=== PATIENT | female | born 1990 | race Caucasian/White ===

== ENCOUNTER 2017-01-15 18:24 | Emergency (ER) | payer MEDICAID ==
[~2017-01-15] VITALS: Ht 162.6 cm; Wt 65.7 kg
[2017-01-15] MEDS ORDERED: ONDA4TAB7 PO (19:01)
[2017-01-15] MEDS ORDERED: PNV11TAB5 PO (19:02)
[2017-01-15 20:54] VITALS: BP 119/74
== END 2017-01-15 20:55 | disposition home or self-care (01) ==
LOC: ED 19:12
DX: O26.891 Other specified pregnancy related conditions, first trimester (principal); Z3A.08 8 weeks gestation of pregnancy; K62.5 Hemorrhage of anus and rectum; K59.00 Constipation, unspecified
CPT/HCPCS: 36415; 46600; 81003; 85025

== ENCOUNTER 2017-07-24 15:16 | Outpatient (CLI) | payer OTHER, MEDICAID ==
[~2017-07-24] VITALS: Ht 162.6 cm; Wt 87.7 kg
[~2017-07-24 15:16] MED LIST: ONDA4TAB7 PO; PNV11TAB5 PO
[2017-07-24 16:20] VITALS: BP 114/68
[2017-07-24 19:22] LABS: ASPARTATE AMINO TRANSFERASE 158 U/L (15-37); BLOOD UREA NITROGEN 3 mg/dL (7-18)
== END 2017-07-24 19:50 | disposition home or self-care (01) ==
LOC: LDOP 15:16
PROVIDERS: ATTEND Obstetrics & Gynecology
DX: O36.8130 Decreased fetal movements, third trimester, not applicable or unspecified (principal); Z3A.36 36 weeks gestation of pregnancy
CPT/HCPCS: 36415; 59025; 80053; 99211; G0463

== ENCOUNTER 2017-08-02 10:26 | Outpatient (CLI) | payer OTHER, MEDICAID ==
[2017-08-02 11:11] VITALS: BP 124/80
== END 2017-08-02 12:30 | disposition home or self-care (01) ==
LOC: LDOP 10:26
PROVIDERS: ATTEND Student in an Organized Health Care Education/Training Program
DX: Z36.9 Encounter for antenatal screening, unspecified (principal)
CPT/HCPCS: 59025; 76815; 89060; 99211; G0463; Q0114

== ENCOUNTER 2017-08-07 17:14 | Inpatient (IN) | payer OTHER, MEDICAID ==
[~2017-08-07] VITALS: Ht 162.6 cm; Wt 88.0 kg
[2017-08-07] MEDS ORDERED: OXYTOCIN 30U/ 0.9% NaCL 500ML 500 ML IV PRN ×2 (20:18)
[2017-08-07] MEDS ORDERED: D5%-LACTATED RINGERS 1,000 ML IV SCH (20:18)
[2017-08-07] MEDS ORDERED: OXYTOCIN 30U/ 0.9% NaCL 500ML 500 ML IV ONE (20:18)
[2017-08-07] MEDS ORDERED: NEWBORN KIT ONE (20:23)
[2017-08-07] MEDS ORDERED: OXYTOCIN 30U/ 0.9% NaCL 500ML 500 ML ONE (20:23)
[2017-08-07] MEDS ORDERED: FENTANYL PF 100 MCG/2ML IV PRN (20:30)
[2017-08-07] MEDS ORDERED: TERBUTALINE 1 MG/ML, 1ML IVPush PRN (20:30)
[2017-08-07] MEDS ORDERED: CALCIUM CARBONATE 500 MG TAB.CHEW PO PRN (20:30)
[2017-08-07] MEDS ORDERED: ONDANSETRON 2MG/ML, 2ML IVPush PRN (20:30)
[2017-08-07] MEDS ORDERED: MISOPROSTOL 25 MCG TABLET ONE (20:36)
[2017-08-07] MEDS: MISOPROSTOL 25 MCG TABLET VG PRN (20:40)
[2017-08-07 20:54] LABS: BASOPHILS # (AUTO) 0.02 x10^3/uL (0-0.1); BASOPHILS % (AUTO) 0 % (0-1); EOSINOPHILS # (AUTO) 0.18 x10^3/uL (0-0.4); EOSINOPHILS % (AUTO) 2 % (1-7); LYMPHOCYTES # (AUTO) 2.98 x10^3/uL (1-3.4); LYMPHOCYTES % (AUTO) 24 % (22-44); MD NO; MEAN CORPUSCULAR HEMOGLOBIN 29.4 pg (27.0-34.8); MEAN CORPUSCULAR HGB CONC 33.4 g/dL (32.4-35.8); MEAN CORPUSCULAR VOLUME 88.1 fL (80-100); MEAN PLATELET VOLUME 8.7 fL (7.4-10.4); MONOCYTES # (AUTO) 1.07 x10^3/uL (0.2-0.8); MONOCYTES % (AUTO) 9 % (2-9); NEUTROPHILS # (AUTO) 8.01 x10^3/uL (1.8-6.8); NEUTROPHILS % (AUTO) 65 % (42-75); PLATELET COUNT 280 x10^3/uL (130-400); RED BLOOD COUNT 4.42 x10^6/uL (3.82-5.3); RED CELL DISTRIBUTION WIDTH 12.5 % (9.6-15.2)
[2017-08-08] MEDS ORDERED: DIPHENHYDRAMINE 25 MG CAPSULE ONE (00:04)
[2017-08-08] MEDS ORDERED: MISOPROSTOL 25 MCG TABLET ONE ×2 (00:04→04:30)
[2017-08-08] MEDS: MISOPROSTOL 25 MCG TABLET VG PRN (00:40)
[2017-08-08] MEDS ORDERED: DIPHENHYDRAMINE 25 MG CAPSULE PO PRN (03:30)
[2017-08-08 09:32] LABS: MICROSCOPIC NOT IND
[2017-08-08 09:35] LABS: CULTURE INDICATED? NO
[2017-08-08 09:50] LABS: AMPHETAMINE SCREEN, URINE Negative (Negative); BARBITURATE SCREEN, URINE Negative (Negative); BENZODIAZEPINE SCREEN, URINE Negative (Negative); CANNABINOID SCREEN, URINE Negative (Negative); COCAINE SCREEN, URINE Negative (Negative); METHADONE SCREEN, URINE Negative (Negative); OPIATE SCREEN, URINE Negative (Negative)
[2017-08-08 11:10] LABS: ALANINE AMINOTRANSFERASE 176 U/L (12-78); ALBUMIN 2.7 g/dL (3.4-5.0); ANION GAP 6 mmol/L (5-15); CALCIUM 8.2 mg/dL (8.5-10.1); CHLORIDE 107 mmol/L (98-107); CREATININE 0.47 mg/dL (0.55-1.02)
[2017-08-08 11:12] LABS: ALKALINE PHOSPHATASE 230 U/L (45-117); BILIRUBIN,TOTAL 0.4 mg/dL (0.2-1.0); TOTAL PROTEIN 7.2 g/dL (6.4-8.2)
[2017-08-08] MEDS ORDERED: FENTANYL PF 100 MCG/2ML ONE ×3 (14:12→19:35)
[2017-08-08] MEDS: FENTANYL PF 100 MCG/2ML IVPush PRN ×3 (14:17→19:39)
[2017-08-08] MEDS: LACTATED RINGERS 1,000 ML IV SCH ×2 (14:23→22:49)
[2017-08-08] MEDS ORDERED: LIDOCAINE 1%, 10ML ONE (19:10)
[2017-08-08] MEDS ORDERED: MISOPROSTOL 200 MCG TABLET ONE (19:10)
[2017-08-08 20:13] VITALS: BP 132/77
[2017-08-08] MEDS ORDERED: LACTATED RINGERS 1,000 ML IV SCH (21:48)
[2017-08-08] MEDS ORDERED: FENTANYL/BUPIV./NS/PF 250 ML EPIDCONT SCH (21:48)
[2017-08-08] MEDS ORDERED: BUPIVACAINE/PF 0.25% ONE (21:53)
[2017-08-08] MEDS ORDERED: FENTANYL/BUPIV./NS/PF 250 ML EPIDCONT ONE (21:54)
[2017-08-08] MEDS ORDERED: NALOXONE 0.4 MG/ML, 1ML IVPush PRN (22:00)
[2017-08-08] MEDS ORDERED: LACTATED RINGERS 1,000 ML IVBOLUS PRN (22:00)
[2017-08-08] MEDS ORDERED: EPHEDRINE 50 MG/ML, 1ML IVPush PRN (22:00)
[2017-08-09] MEDS ORDERED: FENTANYL PF 100 MCG/2ML ONE (04:17)
[2017-08-09] MEDS: FENTANYL PF 100 MCG/2ML IVPush PRN (04:21)
[2017-08-09 07:15] VITALS: BP 127/71
[2017-08-09] MEDS ORDERED: MISOPROSTOL 200 MCG TABLET PR PRN (11:30)
[2017-08-09] MEDS ORDERED: IBUPROFEN 600 MG TABLET PO PRN (11:30)
[2017-08-09] MEDS ORDERED: ONDANSETRON 2MG/ML, 2ML IV PRN (11:30)
[2017-08-09] MEDS: OXYTOCIN 30U/ 0.9% NaCL 500ML 500 ML IV SCH ×2 (12:05→21:30)
[2017-08-09] MEDS ORDERED: OXYcodone/APAP 5/325MG TABLET ONE (13:54)
[2017-08-09] MEDS: OXYcodone/APAP 5/325MG TABLET PO PRN ×2 (13:57→20:10)
[2017-08-09 16:45] VITALS: BP 134/82
[2017-08-09 19:40] VITALS: BP 123/84
[2017-08-09 19:56] LABS: BASOPHILS # (AUTO) 0.03 x10^3/uL (0-0.1); BASOPHILS % (AUTO) 0 % (0-1); EOSINOPHILS # (AUTO) 0.07 x10^3/uL (0-0.4); EOSINOPHILS % (AUTO) 0 % (1-7); LYMPHOCYTES # (AUTO) 2.68 x10^3/uL (1-3.4); LYMPHOCYTES % (AUTO) 14 % (22-44); MD SCAN; MEAN CORPUSCULAR HEMOGLOBIN 29.4 pg (27.0-34.8); MEAN CORPUSCULAR HGB CONC 33.2 g/dL (32.4-35.8); MEAN CORPUSCULAR VOLUME 88.6 fL (80-100); MEAN PLATELET VOLUME 8.6 fL (7.4-10.4); MONOCYTES # (AUTO) 1.33 x10^3/uL (0.2-0.8); MONOCYTES % (AUTO) 7 % (2-9); NEUTROPHILS # (AUTO) 14.49 x10^3/uL (1.8-6.8); NEUTROPHILS % (AUTO) 78 % (42-75); PLATELET COUNT 267 x10^3/uL (130-400); RED BLOOD COUNT 4.37 x10^6/uL (3.82-5.3); RED CELL DISTRIBUTION WIDTH 12.6 % (9.6-15.2)
[2017-08-09] MEDS: DOCUSATE 100 MG CAPSULE PO PRN (20:11)
[2017-08-10 00:15] VITALS: BP 125/84
[2017-08-10] MEDS: OXYcodone/APAP 5/325MG TABLET PO PRN ×5 (00:21→21:29)
[2017-08-10 04:20] VITALS: BP 110/71
[2017-08-10] MEDS: OXYTOCIN 30U/ 0.9% NaCL 500ML 500 ML IV SCH ×2 (07:30→20:55)
[2017-08-10] MEDS: PRENATAL VIT/IRON/FA 1 EACH TABLET PO SCH (08:36)
[2017-08-10] MEDS: DOCUSATE 100 MG CAPSULE PO PRN ×2 (08:36→21:29)
[2017-08-10 08:40] VITALS: BP 117/82
[2017-08-10 18:00] VITALS: BP 126/85
[2017-08-10 20:30] VITALS: BP 112/69
[2017-08-11] MEDS: OXYcodone/APAP 5/325MG TABLET PO PRN ×2 (01:53→08:53)
[2017-08-11] MEDS: OXYTOCIN 30U/ 0.9% NaCL 500ML 500 ML IV SCH (03:30)
[2017-08-11 07:15] VITALS: BP 118/79
[2017-08-11] MEDS: DOCUSATE 100 MG CAPSULE PO PRN (08:53)
[2017-08-11] MEDS: PRENATAL VIT/IRON/FA 1 EACH TABLET PO SCH (08:53)
[2017-08-11] MEDS ORDERED: OXYC-302 PO (09:33)
== END 2017-08-11 13:10 | disposition home or self-care (01) | DRG 774 ==
LOC: LDIP 20:14 → 2NW 08-09 12:26 → LDIP 08-09 12:44 → 2NW 08-09 17:08
PROVIDERS: ADMIT Student in an Organized Health Care Education/Training Program; ATTEND Student in an Organized Health Care Education/Training Program
PROC: 10E0XZZ Delivery of Products of Conception, External Approach (ICD-10-PCS; principal; 2017-08-09)
PROC: 3E0P3VZ Introduction of Hormone into Female Reproductive, Percutaneous Approach (ICD-10-PCS; 2017-08-09)
DX: O69.81X0 Labor and delivery complicated by cord around neck, without compression, not applicable or unspecified (principal); O98.42 Viral hepatitis complicating childbirth; Z37.0 Single live birth; Z3A.38 38 weeks gestation of pregnancy; B19.20 Unspecified viral hepatitis C without hepatic coma
CPT/HCPCS: 36415; 80053; 80307; 81003; 85025; 86850; 86900; J3010; J3490; G0479; J2590; J7120; J7121; Q0163

== ENCOUNTER 2017-09-25 18:22 | Inpatient (IN) | payer OTHER, MEDICAID ==
[~2017-09-25] VITALS: Ht 162.6 cm; Wt 74.8 kg
[~2017-09-25 18:22] MED LIST changes: +OXYC-302 PO
[2017-09-25] MEDS ORDERED: SODIUM CHLORIDE 0.9% 1,000ML IVBOLUS ONE ×2 (19:00→22:00)
[2017-09-25] MEDS ORDERED: FAMOTIDINE 20 MG/2 ML IVP ONE (19:00)
[2017-09-25] MEDS ORDERED: ONDANSETRON 2MG/ML, 2ML IVPush ONE (19:00)
[2017-09-25] MEDS ORDERED: SODIUM CHLORIDE FLUSH 10ML SYR IVF ONE (19:00)
[2017-09-25] MEDS ORDERED: PROMETHAZINE 25 MG/ML, 1ML IM ONE (19:30)
[2017-09-25] MEDS ORDERED: PROMETHAZINE 25 MG/ML, 1ML ONE ×2 (19:44→19:51)
[2017-09-25] MEDS ORDERED: FAMOTIDINE 20 MG/2 ML ONE ×2 (19:45→19:52)
[2017-09-25] MEDS ORDERED: ONDANSETRON 2MG/ML, 2ML ONE ×4 (19:45→23:13)
[2017-09-25] MEDS ORDERED: MORPHINE SULFATE 4 MG/ML, 1ML ONE ×3 (19:45→22:12)
[2017-09-25] MEDS: MORPHINE SULFATE 4 MG/ML, 1ML IVPush PRN ×2 (20:05→22:17)
[2017-09-25 20:09] LABS: BASOPHILS # (AUTO) 0.04 x10^3/uL (0-0.1); BASOPHILS % (AUTO) 0 % (0-1); EOSINOPHILS # (AUTO) 0.05 x10^3/uL (0-0.4); EOSINOPHILS % (AUTO) 0 % (1-7); LYMPHOCYTES % (AUTO) 15 % (22-44); MD NO; MEAN CORPUSCULAR HEMOGLOBIN 28.9 pg (27.0-34.8); MEAN CORPUSCULAR HGB CONC 33.5 g/dL (32.4-35.8); MEAN CORPUSCULAR VOLUME 86.3 fL (80-100); MEAN PLATELET VOLUME 8.1 fL (7.4-10.4); MONOCYTES # (AUTO) 0.53 x10^3/uL (0.2-0.8); MONOCYTES % (AUTO) 4 % (2-9); NEUTROPHILS # (AUTO) 10.15 x10^3/uL (1.8-6.8); NEUTROPHILS % (AUTO) 80 % (42-75); PLATELET COUNT 300 x10^3/uL (130-400); RED BLOOD COUNT 5.41 x10^6/uL (3.82-5.3); RED CELL DISTRIBUTION WIDTH 13.5 % (9.6-15.2)
[2017-09-25 20:18] LABS: INTERNATIONAL NORMALIZED RATIO 1.03 (0.93-1.1); PROTHROMBIN TIME 10.6 Seconds (9.6-11.5)
[2017-09-25 20:23] LABS: ALANINE AMINOTRANSFERASE 130 U/L (12-78); ALBUMIN 4.5 g/dL (3.4-5.0); ANION GAP 9 mmol/L (5-15); CALCIUM 9.3 mg/dL (8.5-10.1); CHLORIDE 105 mmol/L (98-107); CREATININE 0.83 mg/dL (0.55-1.02)
[2017-09-25 20:27] LABS: ALKALINE PHOSPHATASE 110 U/L (45-117); BILIRUBIN,TOTAL 0.7 mg/dL (0.2-1.0); TOTAL PROTEIN 8.3 g/dL (6.4-8.2)
[2017-09-25 21:32] LABS: MICROSCOPIC NOT IND
[2017-09-25 21:34] LABS: HCG UR SG 1.006 (1.003-1.030)
[2017-09-25] MEDS ORDERED: OMNIPAQUE 350 MG/ML, 150 ML BOTTLE ONE (21:34)
[2017-09-25 21:35] LABS: CULTURE INDICATED? NO
[2017-09-25] MEDS ORDERED: CEFOTETAN PMX 1GM/50ML 50 ML IV ONE (22:00)
[2017-09-25] MEDS ORDERED: CEFOTETAN PMX 1GM/50ML 50 ML ONE (22:11)
[2017-09-25] MEDS ORDERED: EPINEPHRINE 1 MG/ML, 1ML ONE (22:31)
[2017-09-25] MEDS ORDERED: BUPIVACAINE/PF 0.5% ONE (22:31)
[2017-09-25] MEDS ORDERED: FENTANYL PF 250 MCG/5ML ONE (22:40)
[2017-09-25] MEDS ORDERED: MIDAZOLAM 1 MG/ML, 2ML ONE (22:56)
[2017-09-25] MEDS ORDERED: SUCCINYLCHOLINE 20 MG/ML, 10ML ONE (23:00)
[2017-09-25] MEDS ORDERED: hydrALAzine 20 MG/ML, 1ML IV PRN (23:00)
[2017-09-25] MEDS ORDERED: ACETAMINOPHEN 325 MG TABLET PO PRN (23:00)
[2017-09-25] MEDS ORDERED: OXYcodone 5 MG/5 ML ORAL.SOL UDC PO PRN (23:00)
[2017-09-25] MEDS ORDERED: LABETALOL 5MG/ML, 20ML IV PRN (23:00)
[2017-09-25] MEDS ORDERED: MEPERIDINE/PF 25MG/0.5ML IVPush PRN (23:00)
[2017-09-25] MEDS ORDERED: ONDANSETRON 2MG/ML, 2ML IVPush PRN (23:00)
[2017-09-25] MEDS ORDERED: PROPOFOL 10 MG/ML, 20ML ONE ×2 (23:00→23:13)
[2017-09-25] MEDS ORDERED: HYDROmorphone 1 MG/ML, 1ML IV PRN (23:00)
[2017-09-25] MEDS ORDERED: PROMETHAZINE 12.5 MG SUPP PR PRN (23:00)
[2017-09-25] MEDS ORDERED: DEXAMETHASONE 4 MG/ML, 1ML ONE ×2 (23:00→23:13)
[2017-09-25] MEDS ORDERED: ROCURONIUM 10 MG/ML,10ML ONE (23:13)
[2017-09-26] MEDS ORDERED: MEPERIDINE/PF 50 MG/ML ONE (00:28)
[2017-09-26] MEDS ORDERED: ACETAMINOPHEN 650 MG/20.3 ML UDC ONE (00:28)
[2017-09-26] MEDS ORDERED: FENTANYL PF 100 MCG/2ML ONE (00:28)
[2017-09-26] MEDS ORDERED: OXYcodone 5 MG/5 ML ORAL.SOL UDC ONE (00:29)
[2017-09-26] MEDS ORDERED: ONDANSETRON 2MG/ML, 2ML IVPush PRN (00:30)
[2017-09-26] MEDS ORDERED: PROMETHAZINE 25 MG/ML, 1ML IM PRN (00:30)
[2017-09-26] MEDS ORDERED: ACETAMINOPHEN 325 MG TABLET PO PRN (00:30)
[2017-09-26] MEDS: FENTANYL PF 100 MCG/2ML IV PRN ×2 (00:40→01:04)
[2017-09-26] MEDS: D5%-0.45NACL+KCL 20MEQ 1,000 ML IV SCH ×2 (04:19→12:49)
[2017-09-26] MEDS: OXYcodone/APAP 7.5/325MG TABLET PO PRN ×4 (04:19→22:47)
[2017-09-26 07:21] VITALS: BP 105/60
[2017-09-26] MEDS: morphine SULFATE 10 MG/ML, 1ML IVPush PRN ×4 (08:33→20:42)
[2017-09-26 09:36] LABS: MEAN CORPUSCULAR HEMOGLOBIN 28.8 pg (27.0-34.8); MEAN CORPUSCULAR HGB CONC 33.7 g/dL (32.4-35.8); MEAN CORPUSCULAR VOLUME 85.4 fL (80-100); MEAN PLATELET VOLUME 8.6 fL (7.4-10.4); PLATELET COUNT 243 x10^3/uL (130-400); RED BLOOD COUNT 4.47 x10^6/uL (3.82-5.3); RED CELL DISTRIBUTION WIDTH 13.1 % (9.6-15.2)
[2017-09-26 09:57] LABS: BASOPHILS # (AUTO) 0.03 x10^3/uL (0-0.1); BASOPHILS % (AUTO) 0 % (0-1); EOSINOPHILS % (AUTO) 0 % (1-7); LYMPHOCYTES # (AUTO) 1.38 x10^3/uL (1-3.4); LYMPHOCYTES % (AUTO) 14 % (22-44); MD SCAN; MONOCYTES # (AUTO) 0.54 x10^3/uL (0.2-0.8); MONOCYTES % (AUTO) 5 % (2-9); NEUTROPHILS # (AUTO) 8.23 x10^3/uL (1.8-6.8); NEUTROPHILS % (AUTO) 81 % (42-75)
[2017-09-26] MEDS: CEFOTETAN PMX 1GM/50ML 50 ML IVPB SCH ×2 (12:48→22:43)
[2017-09-26 13:30] VITALS: BP 108/61
[2017-09-26 21:00] VITALS: BP 121/74
[2017-09-27] MEDS: D5%-0.45NACL+KCL 20MEQ 1,000 ML IV SCH ×2 (01:17→07:52)
[2017-09-27] MEDS: morphine SULFATE 10 MG/ML, 1ML IVPush PRN ×2 (02:50→07:53)
[2017-09-27 03:19] VITALS: BP 113/65
[2017-09-27] MEDS: OXYcodone/APAP 7.5/325MG TABLET PO PRN ×2 (05:03→11:04)
[2017-09-27 05:41] LABS: MEAN CORPUSCULAR HEMOGLOBIN 28.9 pg (27.0-34.8); MEAN CORPUSCULAR HGB CONC 33.4 g/dL (32.4-35.8); MEAN CORPUSCULAR VOLUME 86.5 fL (80-100); MEAN PLATELET VOLUME 8.5 fL (7.4-10.4); PLATELET COUNT 209 x10^3/uL (130-400); RED BLOOD COUNT 4.36 x10^6/uL (3.82-5.3); RED CELL DISTRIBUTION WIDTH 13.5 % (9.6-15.2)
[2017-09-27 06:57] VITALS: BP 104/62
[2017-09-27 07:03] LABS: MD YES
[2017-09-27 07:06] LABS: EOS#(MANUAL) 0.07 x10^3/uL (0.0-0.4); EOS% (MANUAL) 1 % (1-7); LYMPH#(MANUAL) 2.73 x10^3/uL (1-3.4); LYMPHS% (MANUAL) 42 % (22-44); MONOS#(MANUAL) 0.33 x10^3/uL (0.3-2.7); MONOS% (MANUAL) 5 % (2-9); REACTIVE LYMPHS # (MANUAL) 0.07 x10^3/uL (0-0); REACTIVE LYMPHS % (MANUAL) 1 % (0-0); SEG#(MANUAL) 3.32 x10^3/uL (1.8-6.8); SEGS% (MANUAL) 51 % (42-75)
[2017-09-27 07:07] LABS: <PLATELET ESTIMATE> ADEQUATE; <PLT MORPHOLOGY> NORMAL PLT MORPH; <RBC MORPHOLOGY> NORMAL
[2017-09-27] MEDS: CEFOTETAN PMX 1GM/50ML 50 ML IVPB SCH (11:05)
[2017-09-27] MEDS ORDERED: OXYC-306 PO (11:42)
[2017-09-27] MEDS ORDERED: PNEUMOCOCCAL 23 VACCINE IM-VACC ONE (12:30)
[2017-09-27 12:49] VITALS: BP 112/73
== END 2017-09-27 12:50 | disposition home or self-care (01) | DRG 342 ==
LOC: ED 21:06 → EDIP 22:10 → 4NOR 09-26 01:26
PROVIDERS: ADMIT Surgery; ATTEND Surgery
PROC: 0DTJ4ZZ Resection of Appendix, Percutaneous Endoscopic Approach (ICD-10-PCS; principal; 2017-09-26)
DX: K35.80 Unspecified acute appendicitis (principal); F19.20 Other psychoactive substance dependence, uncomplicated; B19.20 Unspecified viral hepatitis C without hepatic coma; Z88.6 Allergy status to analgesic agent; Z88.8 Allergy status to other drugs, medicaments and biological substances
CPT/HCPCS: 36415; 74177; 76700; 80053; 81003; 81025; 83690; 84703; 85025; 85610; 86677; 88304; 90732; 96361; 96372; 96374; 96375; 96376; J0171; J1100; J2175; J2250; J2405; J2550; J2704; J3010; J3490; Q9967; J0330; J2270; J3480; J7030; S0028; S0074

== ENCOUNTER 2019-03-24 06:58 | Emergency (ER) | payer MEDICAID, OTHER ==
[~2019-03-24] VITALS: Ht 162.6 cm; Wt 54.7 kg
[2019-03-24 07:00] VITALS: BP 122/90
== END 2019-03-24 08:26 | disposition home or self-care (01) ==
LOC: ED 07:48
DX: H66.001 Acute suppurative otitis media without spontaneous rupture of ear drum, right ear (principal); H60.501 Unspecified acute noninfective otitis externa, right ear
CPT/HCPCS: 99283

== ENCOUNTER 2019-09-04 10:44 | Emergency (ER) | payer OTHER ==
[~2019-09-04] VITALS: Ht 162.6 cm; Wt 50.0 kg
[~2019-09-04 10:44] MED LIST changes: +OXYC-306 PO
[2019-09-04 10:47] VITALS: BP 114/76
[2019-09-04] MEDS ORDERED: SODIUM CHLORIDE FLUSH 10ML SYR IVF ONE (11:30)
[2019-09-04 11:49] LABS: BASOPHILS # (AUTO) 0.03 x10^3/uL (0-0.1); BASOPHILS % (AUTO) 1 % (0-1); EOSINOPHILS # (AUTO) 0.33 x10^3/uL (0-0.4); EOSINOPHILS % (AUTO) 6 % (1-7); LYMPHOCYTES # (AUTO) 1.98 x10^3/uL (1-3.4); LYMPHOCYTES % (AUTO) 38 % (22-44); MD NO; MEAN CORPUSCULAR HEMOGLOBIN 30.4 pg (27.0-34.8); MEAN CORPUSCULAR HGB CONC 33.8 g/dL (32.4-35.8); MEAN PLATELET VOLUME 7.9 fL (7.4-10.4); MONOCYTES # (AUTO) 0.65 x10^3/uL (0.2-0.8); MONOCYTES % (AUTO) 12 % (2-9); NEUTROPHILS # (AUTO) 2.28 x10^3/uL (1.8-6.8); NEUTROPHILS % (AUTO) 43 % (42-75); PLATELET COUNT 248 x10^3/uL (130-400); RED BLOOD COUNT 4.53 x10^6/uL (3.82-5.3); RED CELL DISTRIBUTION WIDTH 12.6 % (9.6-15.2)
[2019-09-04 12:07] LABS: ALANINE AMINOTRANSFERASE 170 U/L (12-78); ALBUMIN 3.4 g/dL (3.4-5.0); ANION GAP 4 mmol/L (5-15); CHLORIDE 107 mmol/L (98-107); CREATININE 0.62 mg/dL (0.55-1.02)
[2019-09-04 12:09] LABS: ALKALINE PHOSPHATASE 80 U/L (45-117); BILIRUBIN,TOTAL 0.5 mg/dL (0.2-1.0); TOTAL PROTEIN 6.4 g/dL (6.4-8.2)
--- NOTE | 2019-09-04 12:37 | NUR ---
at this time pt still at [facility]
[2019-09-04] MEDS ORDERED: GADOTERATE 7.5 MMOL/15 ML SYR ONE (13:01)
--- NOTE | 2019-09-04 13:20 | NUR ---
pt back from [facility]
== END 2019-09-04 14:28 | disposition home or self-care (01) ==
LOC: ED 14:00
DX: R20.2 Paresthesia of skin (principal); M79.662 Pain in left lower leg
CPT/HCPCS: 36415; 72158; 72197; 80053; 85025; 99284; A9575; J7512